=== PATIENT | male | born 1975 | race Caucasian/White ===

== ENCOUNTER 2017-06-03 17:11 | Emergency (ER) | payer MEDICAID ==
[2017-06-03 17:18] VITALS: BP 125/80; PULSE 65; RESP 18; TEMP 97.9; O2SAT 98
--- NOTE | 2017-06-03 18:28 | C.PDOC ---
History Of Present Illness 41 y/o male with history of Asthma presents to ED with complaints of pleuritic left sided chest pain developed 3 days ago. Patient states initially pain was constant, now pain is only present when taking deep breaths or tries to cough. Patient reports cough is productive with clear phlegm and denies chills, sob, abdominal pain, nausea, vomiting or any other complaints at this time. Time Seen by Provider: 06/03/17 17:53 Chief Complaint (Nursing): Chest Pain History Per: Patient History/Exam Limitations: no limitations Onset/Duration Of Symptoms: Days Current Symptoms Are (Timing): Still Present Quality: "Pain" Past Medical History Reviewed: Historical Data, Nursing Documentation, Vital Signs Vital Signs: Last Vital Signs Temp 97.9 F 06/03/17 17:19 Pulse 65 06/03/17 17:19 Resp 18 06/03/17 17:19 BP 125/80 06/03/17 17:19 Pulse Ox 98 06/03/17 18:31 - Medical History PMH: Asthma, Back Problems Surgical History: No Surg Hx Family History: States: No Known Family Hx - Social History Hx Tobacco Use: Yes Hx Alcohol Use: Yes Hx Substance Use: Yes - Immunization History Hx Tetanus Toxoid Vaccination: No Hx Influenza Vaccination: No Hx Pneumococcal Vaccination: No Review Of Systems Constitutional: Negative for: Fever, Chills Cardiovascular: Positive for: Chest Pain Respiratory: Positive for: Cough. Negative for: Shortness of Breath Gastrointestinal: Negative for: Nausea, Vomiting, Abdominal Pain Skin: Negative for: Rash Physical Exam - Physical Exam Appears: Non-toxic, No Acute Distress Skin: Warm, Dry, No Rash Head: Atraumatic, Normacephalic Oral Mucosa: Moist Neck: Normal ROM, Supple Chest: Tenderness (Mid axillary line left sided chest wall), No Ecchymosis Cardiovascular: Rhythm Regular Respiratory: Normal Breath Sounds, No Rales, No Rhonchi, No Wheezing Gastrointestinal/Abdominal: Soft, No Tenderness, No Guarding, No Rebound Extremity: No Pedal Edema, Capillary Refill (<2 seconds) Neurological/Psych: Oriented x3, Normal Speech ED Course And Treatment ECG: Interpreted By Me ECG Interpretation: Normal O2 Sat by Pulse Oximetry: 98 (RA) Pulse Ox Interpretation: Normal - Radiology CXR: Interpreted by Me CXR Interpretation: Yes: No Acute Disease Reevaluation Time: 18:56 Reassessment Condition: Improved Disposition Counseled Patient/Family Regarding: Studies Performed, Diagnosis, Need For Followup - Disposition Referrals: David Snell MD [Staff Provider] - Disposition: HOME/ ROUTINE Disposition Time: 19:00 Condition: STABLE Additional Instructions: Take Ibuprophen 2-3 tablets every 6 hours for pain as needed. Instructions: Chest Pain That Is Not Caused by the Heart (DC) Forms: [employer] [facility] (Yoruba) - Clinical Impression Clinical Impression: Left-sided chest wall pain - Scribe Statement The provider has reviewed the documentation as recorded by the Scribe Khadra Webber All medical record entries made by the Scribe were at my direction and personally dictated by me. I have reviewed the chart and agree that the record accurately reflects my personal performance of the history, physical exam, medical decision making, and the department course for this patient. I have also personally directed, reviewed, and agree with the discharge instructions and disposition.
--- NOTE | 2017-06-03 18:55 | RAD ---
HISTORY: Left chest wall pain. COMPARISON: Comparison made with prior chest left rib series dated 02/16/2016. TECHNIQUE: Chest PA and lateral FINDINGS: LUNGS: No active pulmonary disease. PLEURA: Questionable on pleural thickening left lateral upper zafar thorax versus confluence of shadows related to overlying scapula CARDIOVASCULAR: Normal. OSSEOUS STRUCTURES: Minor chronic anterior stature loss of a lower thoracic segments. Mild multilevel degenerative spondylosis. VISUALIZED UPPER ABDOMEN: Normal. OTHER FINDINGS: None. IMPRESSION: No active disease.
--- NOTE | 2017-06-05 07:53 | CARD ---
APPROVED REPORT EKG Measurement Heart [id number] <Conclusion> Normal sinus rhythm Normal ECG
== END 2017-06-03 19:45 | disposition home or self-care (01) ==
LOC: C.ER 17:11
DX: R07.89 Other chest pain (principal)
CPT/HCPCS: 71046; 96372; 99283; J1885

== ENCOUNTER 2017-07-20 14:11 | Emergency (ER) | payer MEDICAID ==
[2017-07-20 15:43] VITALS: RESP 20
[2017-07-20] MEDS ORDERED: Lidocaine 5% Patch TD STA (15:49)
[2017-07-20] MEDS ORDERED: Lidocaine 5% Patch TD ONE (16:08)
--- NOTE | 2017-07-20 17:26 | C.PDOC ---
History Of Present Illness 42yo male, presents to ED with complaints of left sided neck and lower back pain since waking up this morning. He denies any trauma, injury, heavy lifting, bowel or bladder incontinence, weakness, or numbness. He offers no other medical complaints. Time Seen by Provider: 07/20/17 17:38 Chief Complaint (Nursing): Back Pain History Per: Patient History/Exam Limitations: no limitations Onset/Duration Of Symptoms: Hrs Current Symptoms Are (Timing): Still Present Quality Of Discomfort: "Pain" Associated Symptoms: denies: Incontinence, New Weakness, New Numbness Additional History Per: Patient Past Medical History Reviewed: Historical Data, Nursing Documentation, Vital Signs Vital Signs: Last Vital Signs Temp 98.8 F 07/20/17 17:38 Pulse 69 07/20/17 17:38 Resp 20 07/20/17 17:38 BP 128/82 07/20/17 17:38 Pulse Ox 98 07/20/17 22:17 - Medical History PMH: Asthma, Back Problems Surgical History: No Surg Hx Family History: States: No Known Family Hx, Unknown Family Hx - Social History Hx Tobacco Use: Yes Hx Alcohol Use: Yes Hx Substance Use: No - Immunization History Hx Tetanus Toxoid Vaccination: No Hx Influenza Vaccination: No Hx Pneumococcal Vaccination: No Review Of Systems Except As Marked, All Systems Reviewed And Found Negative. Constitutional: Negative for: Fever, Chills Genitourinary: Negative for: Incontinence Musculoskeletal: Positive for: Neck Pain, Back Pain Neurological: Negative for: Weakness, Numbness Physical Exam - Physical Exam Appears: Non-toxic, No Acute Distress Skin: Normal Color, Warm, Dry Head: Atraumatic, Normacephalic Eye(s): bilateral: Normal Inspection Neck: Normal ROM, Supple, Other (left para-cervical muscle spasm) Chest: Symmetrical Cardiovascular: Rhythm Regular Respiratory: Normal Breath Sounds Back: Muscle Spasm (left paralumbar muscle spasm) Extremity: Normal ROM Neurological/Psych: Oriented x3 Gait: Steady ED Course And Treatment O2 Sat by Pulse Oximetry: 98 (RA) Pulse Ox Interpretation: Normal - Other Rad LS spine xray X-Ray: Viewed By Me, Read By Radiologist Interpretation: Accession No. : [id number]. Patient Name / ID : PEPPER ZIMMERMAN / [id number]. Exam Date : 07/20/2017 16:38:29 ( Approved ). Study Comment : Sex / Age : M / 42Y. Creator : Syed Don MD. Dictator : Manager [employer] : Card Lacer : Syed Don MD. Approver2 : Report Date : 07/20/2017 16:59:55. My Comment : . PROCEDURE: Radiographs of the Lumbar Spine. HISTORY: Pain. COMPARISON: Comparison made with prior lumbar spine radiographs dated 08/16/2012. FINDINGS: BONES: No acute compression fracture nor retropulsed fragments. Minor chronic anterior stature loss of the T11, T12 and probably T10 segments likely degenerative in origin. Vertebral bodies otherwise exhibit normal stature. DISC SPACES: Mild disc space narrowing L5- S1 and L4-L5 levels. Small chronic appearing Schmorl's node along the superior and inferior endplates of the L2 segment. Additionally, small marginal anterior osteophyte formation seen at several levels. Facets are mildly hypertrophic L5- S1 through the L3-L4 levels in somewhat decreasing order of severity. OTHER FINDINGS: None. IMPRESSION: No acute fractures. Minor chronic anterior stature loss of the T10, T11 and T12 segments felt to be degenerative in origin. Minor degenerative spondylosis as described. C-spine xray X-Ray: Viewed By Me, Read By Radiologist Interpretation: Accession No. : [id number]. Patient Name / ID : PEPPER ZIMMERMAN / [id number]. Exam Date : 07/20/2017 16:41:51 ( Approved ). Study Comment : Sex / Age : M / 42Y. Creator : Walker Bella MD. Dictator : Walker Bella MD. Manager [employer] : Card Lacer : Walker Bella MD. Approver2 : Report Date : 07/20/2017 17:46:30. My Comment : . PROCEDURE: Cervical Spine Radiographs. HISTORY: Pain. COMPARISON: None. FINDINGS: BONES: Alignment maintained. No fracture. Dens Intact. DISC SPACES: Cervical spondylosis confined to lower cervical spine primarily disc space narrowing at C6-7 and non marginal osteophyte formation. SOFT TISSUES: Normal. No prevertebral soft tissue swelling. OTHER FINDINGS: None. IMPRESSION: No acute findings related to/accounting for the clinical presentation. Progress Note: Patient given Toradol 30mg IM and Valium 5mg PO and lidoderm patch placed. On re-evaluation, patient reports marked improvemet in pain and is stable for discharge home. Instructed to follow up with PMD in 2-3 days. Disposition - Disposition Referrals: Troy Solis MD [Staff Provider] - Ana Mack MD [Staff Provider] - Disposition: HOME/ ROUTINE Disposition Time: 17:23 Condition: STABLE Additional Instructions: Follow up with PMD and pain management within 1-2 days,. Return to ED if feel worse. Prescriptions: Lidocaine 5% [Lidoderm] 1 patch TP DAILY #30 patch Ibuprofen [Motrin Tab] 600 mg PO Q8 #30 tab Famotidine [Pepcid] 20 mg PO BID #20 tab diaZEpam [Valium] 2 mg PO TID #15 tab Instructions: Muscle and Bone Pain (DC) Forms: [facility] (Tajik) - Clinical Impression Clinical Impression: Musculoskeletal pain - PA / [employer] / Resident Statement MD/ has reviewed & agrees with the documentation as recorded. - Scribe Statement The provider has reviewed the documentation as recorded by the Scribe (Kathi Chang) Provider Attestation: All medical record entries made by the Scribe were at my direction and personally dictated by me. I have reviewed the chart and agree that the record accurately reflects my personal performance of the history, physical exam, medical decision making, and the department course for this patient. I have also personally directed, reviewed, and agree with the discharge instructions and disposition.
[2017-07-20 17:39] VITALS: BP 128/82; PULSE 69; TEMP 98.8
--- NOTE | 2017-07-20 17:48 | RAD ---
PROCEDURE: Cervical Spine Radiographs. HISTORY: Pain. COMPARISON: None. FINDINGS: BONES: Alignment maintained. No fracture. Dens Intact. DISC SPACES: Cervical spondylosis confined to lower cervical spine primarily disc space narrowing at C6-7 and non marginal osteophyte formation. SOFT TISSUES: Normal. No prevertebral soft tissue swelling. OTHER FINDINGS: None. IMPRESSION: No acute findings related to/accounting for the clinical presentation.
[2017-07-20 22:13] VITALS: O2SAT 98
== END 2017-07-20 17:41 | disposition home or self-care (01) ==
LOC: C.ER 14:11
DX: M79.1 Myalgia (principal)
CPT/HCPCS: 72040; 72100; 96372; 99283; J1885

== ENCOUNTER 2017-08-04 19:47 | Emergency (ER) | payer MEDICAID ==
[2017-08-04 20:31] VITALS: BP 121/79; PULSE 74; RESP 18; TEMP 98.6; O2SAT 99
--- NOTE | 2017-08-04 21:35 | C.PDOC ---
History Of Present Illness 42 year old male with a Hx of chronic back pain presents to the ER with a complaint of exacerbation of his back pain. Patient states he has not followed up with outpatient and has not tried anything for the pain. Patient was seen on 07/20/17 for the same complaint, he was given medication for pain which helped, however, pain is now recurring. Denies weakness, numbness, incontinence, dysuria , or hematuria. Time Seen by Provider: 08/04/17 20:53 Chief Complaint (Nursing): Back Pain History Per: Patient History/Exam Limitations: no limitations Onset/Duration Of Symptoms: Days Current Symptoms Are (Timing): Still Present Quality Of Discomfort: Unable To Describe Previous Symptoms: Back Pain, Chronic Pain Associated Symptoms: None Exacerbating Factor(s): Nothing Recent travel outside of the [place]: No Past Medical History Reviewed: Historical Data, Nursing Documentation, Vital Signs Vital Signs: Last Vital Signs Temp 98.6 F 08/04/17 20:28 Pulse 74 08/04/17 20:28 Resp 18 08/04/17 20:28 BP 121/79 08/04/17 20:28 Pulse Ox 99 08/04/17 21:36 - Medical History PMH: Asthma, Back Problems Family History: States: Unknown Family Hx - Social History Hx Tobacco Use: Yes Hx Alcohol Use: Yes Hx Substance Use: No - Immunization History Hx Tetanus Toxoid Vaccination: No Hx Influenza Vaccination: No Hx Pneumococcal Vaccination: No Review Of Systems Genitourinary: Negative for: Dysuria, Incontinence, Hematuria Musculoskeletal: Positive for: Back Pain Neurological: Negative for: Weakness, Numbness Physical Exam - Physical Exam Appears: Non-toxic Skin: Normal Color, Warm, Dry Head: Atraumatic, Normacephalic Eye(s): bilateral: Normal Inspection Back: No Vertebral Tenderness, Paraspinal Tenderness (Lumbar) Extremity: Normal ROM (x4) Neurological/Psych: Oriented x3, Normal Speech, Normal Motor, Normal Sensation Gait: Steady ED Course And Treatment O2 Sat by Pulse Oximetry: 99 (room air) Pulse Ox Interpretation: Normal Progress Note: Flexeril and toradol administered with improvement. Patient is ambulatory in the ER with no pain or discomfort, will discharge home with Rx and instructions to follow up with PMD. Disposition - Disposition Referrals: David Snell MD [Primary Care Provider] - Disposition: HOME/ ROUTINE Disposition Time: 21:32 Condition: STABLE Additional Instructions: Please follow up with PMD for pain management Return to ER if worse Prescriptions: Cyclobenzaprine [Cyclobenzaprine HCl] 10 mg PO BID #10 tab Ibuprofen [Motrin] 600 mg PO Q6H #20 tab Instructions: Low Back Pain (DC) Forms: [employer] (Guatemalan) - Clinical Impression Clinical Impression: Low back pain - PA / [employer] / Resident Statement MD/DO has reviewed & agrees with the documentation as recorded. - Scribe Statement The provider has reviewed the documentation as recorded by the Scribmarylin Lyons All medical record entries made by the Judith were at my direction and personally dictated by me. I have reviewed the chart and agree that the record accurately reflects my personal performance of the history, physical exam, medical decision making, and the department course for this patient. I have also personally directed, reviewed, and agree with the discharge instructions and disposition.
== END 2017-08-04 21:42 | disposition home or self-care (01) ==
LOC: SUPCPDRO 19:47 → C.ER 19:47
DX: M54.5 Low back pain (principal); Z72.0 Tobacco use
CPT/HCPCS: 96372; 99283; J1885

== ENCOUNTER 2018-01-08 12:27 | Emergency (ER) | payer MEDICAID ==
[2018-01-08 12:32] VITALS: BP 127/84; PULSE 74; RESP 20; TEMP 98.4; O2SAT 100
--- NOTE | 2018-01-08 13:28 | C.PDOC ---
History Of Present Illness 42-year-old male, presents to the emergency department with complaints of pain in back. Patient states he lifted something heavy at work today after which he developed pain in his lower back. Pain is non-radiating. He denies any bladder/bowel incontinence, nausea/vomiting, numbness/weakness or any other associated symptoms. No medications take at home. Time Seen by Provider: 01/08/18 12:35 Chief Complaint (Nursing): Back Pain Past Medical History Reviewed: Historical Data, Nursing Documentation, Vital Signs Vital Signs: Last Vital Signs Temp 98.4 F 01/08/18 12:30 Pulse 74 01/08/18 12:30 Resp 20 01/08/18 12:30 BP 127/84 01/08/18 12:30 Pulse Ox 100 01/08/18 12:30 - Medical History PMH: Asthma, Back Problems Family History: States: No Known Family Hx - Social History Hx Tobacco Use: Yes Hx Alcohol Use: Yes Hx Substance Use: No - Immunization History Hx Tetanus Toxoid Vaccination: Yes Hx Influenza Vaccination: Yes Hx Pneumococcal Vaccination: Yes Review Of Systems Genitourinary: Negative for: Incontinence Musculoskeletal: Positive for: Back Pain Neurological: Negative for: Weakness, Numbness Physical Exam - Physical Exam Appears: Non-toxic, No Acute Distress Skin: Warm, Dry, No Rash Head: Atraumatic, Normacephalic Eye(s): bilateral: Normal Inspection Neck: Supple Cardiovascular: Rhythm Regular, No Murmur Gastrointestinal/Abdominal: Bowel Sounds, Soft, No Tenderness, No Guarding, No Rebound Back: No Vertebral Tenderness, Paraspinal Tenderness (Mild, B/L. No midline tenderness) Extremity: Normal ROM, No Tenderness Neurological/Psych: Oriented x3, Normal Speech, Normal Cognition ED Course And Treatment O2 Sat by Pulse Oximetry: 100 Pulse Ox Interpretation: Normal (RA) Medical Decision Making Medical Decision Makin pt repoirts pain decreased after toradol. d/c home with nsaids. Disposition - Disposition Referrals: David Snell MD [Staff Provider] - Disposition: HOME/ ROUTINE Disposition Time: 13:26 Condition: IMPROVED Additional Instructions: Avoid heavy lifitng. Warm or cold compresses to lower back several times a day. Take Naproxen if needed (with food) for pain. Follow up with Dr Snell in a few days. Prescriptions: Naproxen 500 mg PO BID #20 tab Instructions: Low Back Pain (DC) Forms: [facility] (Latvian), General Discharge Instructions - Clinical Impression Clinical Impression: Low back strain - Scribe Statement The provider has reviewed the documentation as recorded by the Scribe (Jonah Wang) All medical record entries made by the Scribe were at my direction and personally dictated by me. I have reviewed the chart and agree that the record accurately reflects my personal performance of the history, physical exam, medical decision making, and the department course for this patient. I have also personally directed, reviewed, and agree with the discharge instructions and disposition.
== END 2018-01-08 13:39 | disposition home or self-care (01) ==
LOC: C.ER 12:27
DX: S39.012A Strain of muscle, fascia and tendon of lower back, initial encounter (principal); X50.0XXA Overexertion from strenuous movement or load, initial encounter; Y92.89 Other specified places as the place of occurrence of the external cause; Y99.0 Civilian activity done for income or pay
CPT/HCPCS: 96372; 99283; J1885